=== PATIENT | male | born 1960 | race American Indian/Alaskan Native ===

== ENCOUNTER 2017-09-25 13:43 | Inpatient (IN) | payer MEDICAID ==
--- NOTE | 2017-09-25 18:00 | Emergency Department Report ---
Chief Complaint: Dental/Oral Stated Complaint: SWOLLLEN JAW Time Seen by Provider: 09/25/17 17:40 - HPI History of Present Illness: Patient here reports that he has swelling to the left jaw area that he noticed when he woke up this morning and it's getting more swollen as the day goes on. He said he feels hot and chills. Pain is 8 out of 10 to his facial area. He said it's achy and throbbing. Patient and has a history of tonsillar cancer and had completed radiation therapy and 08/21/2017. He has HIV and was diagnosed as 1983. History of complete thyroidectomy. Negative nausea or vomiting. - ROS Review of Systems: all Systems are negative unless stated in HPI above - Exam Vital Signs: Vital Signs 09/25/17 15:00 Temperature 99.9 F H Pulse Rate 96 H Respiratory 20 Rate Blood Pressure 150/86 Blood Pressure 150/86 [Right] O2 Sat by Pulse 98 Oximetry Physical Exam: Gen.: Is a 57-year-old male well-nourished well-developed nontoxic in appearance MOUTH: Moist, is that of left facial swelling. Uvula is midline. Left oral mucosa tender to palpate. Oral airway is patent. No trismus Lungs: Clear to auscultate bilaterally, no rhonchi wheezes or rales MSE screening note: Focused history and physical exam performed. Due to findings the following was ordered: ED Medical Decision Making - Medical Decision Making MDM: Patient screened by provider in triage area. Appropriate protocol initiated and patient to be seen in main ED by ED Disposition for MSE Condition: Stable Referrals: PRIMARY CARE, [Primary Care Provider] - 3-5 Days
[2017-09-25 19:07] LABS: Basophils % (Auto) 0.2 % (0.0-1.8); Eosinophils % (Auto) 0.1 % (0.0-4.3); Hematocrit 44.1 % (35.5-45.6); Hemoglobin 14.3 gm/dl (11.8-15.2); Mean Corpuscular HGB Conc 32 % (32-34); Mean Corpuscular Hemoglobin 27 pg (28-32); Mean Corpuscular Volume 84 fl (84-94); Platelet Count 228 K/mm3 (140-440); Red Blood Count 5.25 M/mm3 (3.65-5.03); Red Cell Distribution Width 15.7 % (13.2-15.2); White Blood Count 9.8 K/mm3 (4.5-11.0)
[2017-09-25 19:27] LABS: Alanine Aminotransferase 14 units/L (7-56); Albumin 4.4 g/dL (3.9-5); Albumin/Globulin Ratio 1.3 %; Alkaline Phosphatase 62 units/L (35-129); Anion Gap 17 mmol/L; BUN/Creatinine Ratio 11; Blood Urea Nitrogen 10 mg/dL (9-20); Calcium 9.1 mg/dL (8.4-10.2); Carbon Dioxide 28 mmol/L (22-30); Chloride 97.4 mmol/L (98-107); Glucose 114 mg/dL (75-100); Potassium 4.4 mmol/L (3.6-5.0); Sodium 138 mmol/L (137-145); Total Protein 7.9 g/dL (6.3-8.2)
[2017-09-25] MEDS ORDERED: SUBLIMAZE IV ONE (19:46)
[2017-09-25] MEDS ORDERED: NACL ONE (20:33)
[2017-09-25] MEDS ORDERED: NACL 0.9% 1000 ML 1,000 ML IV ONE (21:21)
[2017-09-25] MEDS ORDERED: UNASYN/NS 3 GM/100 ML 3 GM/100 ML BAG IV ONE (21:36)
--- NOTE | 2017-09-25 21:37 | Emergency Department Report ---
ED General Adult HPI - General Chief complaint: Dental/Oral Stated complaint: SWOLLLEN JAW Time Seen by Provider: 09/25/17 17:55 Source: patient Mode of arrival: Ambulatory Limitations: No Limitations - History of Present Illness Initial comments: She is a 57-year-old male past medical history of HIV who presents with left jaw swelling and pain. Patient states that he woke up this morning and he had some swelling on his left jaw. Patient states that the pain is a 7 out of 10 chewing makes it worse and nothing makes it better. Patient states that the onset of the pain was this morning. Patient states that he had no tooth pain or any rashes on his face before he noticed this this morning. Patient states that this is never happened to him before. Patient has had a thyroidectomy done before on him in the past. He denies any fevers or chills. Severity scale (0 -10): 7 - Related Data Home Medications Medication Instructions Recorded Confirmed Last Taken Docusate Sodium [Colace CAP] 100 mg PO BID PRN 09/26/17 09/26/17 Unknown Emtricita/Rilpivirine/Tenof Df 1 tab PO QDAY 09/26/17 09/26/17 Unknown [Complera Tablet] Gabapentin [Neurontin] 100 mg PO TID 09/26/17 09/26/17 Unknown Levothyroxine [Synthroid] 100 mcg PO QDAY 09/26/17 09/26/17 Unknown Lidocaine Viscous 2% [Lidocaine 5 ml PO PRN PRN 09/26/17 09/26/17 Unknown Viscous 2%] Loratadine [Loratadine] 10 mg PO QDAY PRN 09/26/17 09/26/17 Unknown Sennosides [Senna] 1 tab PO PRN 09/26/17 09/26/17 Unknown Allergies Allergy/AdvReac Type Severity Reaction Status Date / Time No Known Allergies Allergy Unverified 09/25/17 15:00 ED Review of Systems ROS: Stated complaint: SWOLLLEN JAW Other details as noted in HPI Constitutional: denies: chills, fever Eyes: denies: eye pain, eye discharge, vision change ENT: as per HPI, dental pain. denies: ear pain, throat pain Respiratory: denies: cough, shortness of breath, wheezing Cardiovascular: denies: chest pain, palpitations Endocrine: no symptoms reported Gastrointestinal: denies: abdominal pain, nausea, diarrhea Genitourinary: denies: urgency, dysuria Musculoskeletal: denies: back pain, joint swelling, arthralgia Skin: denies: rash, lesions Neurological: denies: headache, weakness, paresthesias Psychiatric: denies: anxiety, depression Hematological/Lymphatic: denies: easy bleeding, easy bruising ED Past Medical Hx - Past Medical History Hx of Cancer: Yes (tonsillar CA-radiation completed 08/18) Hx HIV: Yes (DX 1983) Additional medical history: complete thyroidectomy (left thyroid 1996, 2006 right thyroid) - Surgical History Additional Surgical History: bilateral leg sx-broken(20 yrs ago) - Social History Smoking Status: Former Smoker Substance Use Type: None, Marijuana - Medications Home Medications: Home Medications Medication Instructions Recorded Confirmed Last Taken Type Docusate Sodium [Colace CAP] 100 mg PO BID PRN 09/26/17 09/26/17 Unknown History Emtricita/Rilpivirine/Tenof Df 1 tab PO QDAY 09/26/17 09/26/17 Unknown History [Complera Tablet] Gabapentin [Neurontin] 100 mg PO TID 09/26/17 09/26/17 Unknown History Levothyroxine [Synthroid] 100 mcg PO QDAY 09/26/17 09/26/17 Unknown History Lidocaine Viscous 2% [Lidocaine 5 ml PO PRN PRN 09/26/17 09/26/17 Unknown History Viscous 2%] Loratadine [Loratadine] 10 mg PO QDAY PRN 09/26/17 09/26/17 Unknown History Sennosides [Senna] 1 tab PO PRN 09/26/17 09/26/17 Unknown History ED Physical Exam - General Limitations: No Limitations General appearance: alert, in no apparent distress - Head Head exam: Present: atraumatic, normocephalic - Eye Eye exam: Present: normal appearance - ENT ENT exam: Present: mucous membranes moist - Neck Neck exam: Present: other (left jaw and left facial swelling tender to palpation poor dentition. Tolerating secretions well) - Respiratory Respiratory exam: Present: normal lung sounds bilaterally. Absent: respiratory distress - Cardiovascular Cardiovascular Exam: Present: regular rate, normal rhythm. Absent: systolic murmur, diastolic murmur, rubs, gallop - GI/Abdominal GI/Abdominal exam: Present: soft, normal bowel sounds - Rectal Rectal exam: Present: deferred - Extremities Exam Extremities exam: Present: normal inspection - Back Exam Back exam: Present: normal inspection - Neurological Exam Neurological exam: Present: alert, oriented X3 - Psychiatric Psychiatric exam: Present: normal affect, normal mood - Skin Skin exam: Present: warm, dry, intact, normal color. Absent: rash ED Course Vital Signs 09/25/17 09/25/17 09/25/17 14:44 15:00 15:22 Temperature 99.9 F H Pulse Rate 96 H 96 H 120 H Respiratory 20 Rate Blood Pressure 150/86 150/86 171/118 Blood Pressure 150/86 [Right] O2 Sat by Pulse 99 98 98 Oximetry 09/25/17 09/25/17 09/25/17 16:43 17:41 17:55 Temperature Pulse Rate 104 H 75 Respiratory Rate Blood Pressure 125/88 158/71 137/66 Blood Pressure [Right] O2 Sat by Pulse 99 98 Oximetry 09/25/17 09/25/17 09/25/17 17:59 18:08 18:13 Temperature Pulse Rate 86 78 110 H Respiratory Rate Blood Pressure 131/84 131/81 142/73 Blood Pressure [Right] O2 Sat by Pulse 100 100 93 Oximetry 09/25/17 09/25/17 09/25/17 18:22 18:31 18:37 Temperature 100.3 F H Pulse Rate 121 H Respiratory 22 Rate Blood Pressure 152/84 Blood Pressure [Right] O2 Sat by Pulse 97 Oximetry 09/25/17 09/25/17 09/25/17 18:45 19:00 19:05 Temperature Pulse Rate 96 H 91 H 91 H Respiratory 14 13 13 Rate Blood Pressure 151/95 159/101 159/101 Blood Pressure [Right] O2 Sat by Pulse Oximetry 09/25/17 09/25/17 09/25/17 19:10 19:15 19:21 Temperature Pulse Rate 89 89 96 H Respiratory 13 13 16 Rate Blood Pressure 159/97 159/97 159/97 Blood Pressure [Right] O2 Sat by Pulse Oximetry 09/25/17 09/25/17 09/25/17 19:25 19:30 19:35 Temperature Pulse Rate 89 92 H 89 Respiratory 14 15 13 Rate Blood Pressure 159/97 157/92 157/92 Blood Pressure [Right] O2 Sat by Pulse Oximetry 09/25/17 09/25/17 09/25/17 19:40 19:45 19:50 Temperature Pulse Rate 92 H 92 H 101 H Respiratory 17 16 13 Rate Blood Pressure 150/99 150/99 147/97 Blood Pressure [Right] O2 Sat by Pulse Oximetry 09/25/17 09/25/17 09/25/17 19:55 20:00 20:05 Temperature Pulse Rate 91 H 89 96 H Respiratory 14 13 13 Rate Blood Pressure 147/97 152/95 152/95 Blood Pressure [Right] O2 Sat by Pulse Oximetry 09/25/17 09/25/17 09/25/17 20:10 20:15 20:21 Temperature Pulse Rate 93 H 108 H 97 H Respiratory 16 11 L 11 L Rate Blood Pressure 148/95 148/95 131/80 Blood Pressure [Right] O2 Sat by Pulse Oximetry 09/25/17 09/25/17 09/25/17 20:25 20:30 20:35 Temperature Pulse Rate 103 H 110 H 97 H Respiratory 13 18 13 Rate Blood Pressure 131/80 140/84 140/84 Blood Pressure [Right] O2 Sat by Pulse Oximetry 09/25/17 09/25/17 09/25/17 20:40 20:45 20:50 Temperature Pulse Rate 100 H 103 H 111 H Respiratory 13 11 L 11 L Rate Blood Pressure 130/78 130/78 140/84 Blood Pressure [Right] O2 Sat by Pulse Oximetry 09/25/17 09/25/17 09/25/17 21:37 21:40 21:45 Temperature Pulse Rate 92 H 90 Respiratory 12 12 Rate Blood Pressure 140/84 154/92 154/92 Blood Pressure [Right] O2 Sat by Pulse 98 100 100 Oximetry 09/25/17 09/25/17 09/25/17 21:50 21:55 22:00 Temperature Pulse Rate 90 90 92 H Respiratory 17 15 13 Rate Blood Pressure 162/91 162/91 153/84 Blood Pressure [Right] O2 Sat by Pulse 100 100 100 Oximetry 09/25/17 09/26/17 09/26/17 22:05 00:02 00:03 Temperature 100.8 F H Pulse Rate 86 Respiratory 12 Rate Blood Pressure 153/84 153/84 Blood Pressure [Right] O2 Sat by Pulse 100 100 Oximetry 09/26/17 00:10 Temperature Pulse Rate Respiratory Rate Blood Pressure 149/91 Blood Pressure [Right] O2 Sat by Pulse 100 Oximetry ED Medical Decision Making - Lab Data Result diagrams: 09/26/17 05:55 09/26/17 05:55 Lab Results 09/25/17 09/25/17 09/25/17 Range/Units 18:51 18:51 18:51 WBC 9.8 (4.5-11.0) K/mm3 RBC 5.25 H (3.65-5.03) M/mm3 Hgb 14.3 (11.8-15.2) gm/dl Hct 44.1 (35.5-45.6) % MCV 84 (84-94) fl MCH 27 L (28-32) pg MCHC 32 (32-34) % RDW 15.7 H (13.2-15.2) % Plt Count 228 (140-440) K/mm3 Lymph % (Auto) 10.2 L (13.4-35.0) % [place] % (Auto) 7.6 H (0.0-7.3) % Eos % (Auto) 0.1 (0.0-4.3) % Baso % (Auto) 0.2 (0.0-1.8) % Lymph # 1.0 L (1.2-5.4) K/mm3 [place] # 0.7 (0.0-0.8) K/mm3 Eos # 0.0 (0.0-0.4) K/mm3 Baso # 0.0 (0.0-0.1) K/mm3 Seg Neutrophils % 81.9 H (40.0-70.0) % Seg Neutrophils # 8.0 H (1.8-7.7) K/mm3 Carbon Dioxide 28 (22-30) mmol/L BUN 10 (9-20) mg/dL Creatinine 0.9 (0.8-1.5) mg/dL Estimated GFR > 60 ml/min BUN/Creatinine Ratio 11 % Glucose 114 H (75-100) mg/dL Lactic Acid 2.10 H* (0.7-2.0) mmol/L Calcium 9.1 (8.4-10.2) mg/dL Total Bilirubin 1.20 (0.1-1.2) mg/dL AST 28 (5-40) units/L ALT 14 (7-56) units/L Alkaline Phosphatase 62 (35-129) units/L Total Protein 7.9 (6.3-8.2) g/dL Albumin 4.4 (3.9-5) g/dL Albumin/Globulin Ratio 1.3 % - Radiology Data Radiology results: report reviewed, image reviewed CT angiogram head and neck shows left facial subcutaneous edema is compatible with cellulitis. No organized abscess or focal soft tissue masses seen. - Medical Decision Making Chief medical diagnosis: Left facial cellulitis Differential medical diagnosis: Left facial abscess, parotitis, Chuy's angina I will get CT angiogram head and neck, CBC, CMP, IV antibiotics, fluid bolus, lactic acid, IV pain medication, blood cultures CT and her head and neck shows left facial cellulitis patient will need IV antibiotics and blood cultures. It is unlikely that patient has sepsis as his vital signs are stable he does not need to be transferred for ENT evaluation as there is no abscess and no surgical treatment that needs to be done on this patient. Discussed plan with patient and patient agrees to plan patient will be admitted to the hospitalist service. Critical care attestation.: If time is entered above; I have spent that time in minutes in the direct care of this critically ill patient, excluding procedure time. ED Disposition Clinical Impression: Left facial pain, Facial cellulitis, Elevated lactic acid level Disposition: OP ADMIT IP TO THIS HOSP Is pt being admited?: Yes Does the pt Need Aspirin: No Condition: Stable
--- NOTE | 2017-09-25 22:02 | Cat Scan Report ---
FINAL REPORT PROCEDURE: CT ANGIO NECK TECHNIQUE: Computerized axial tomography of the soft tissue neck was performed following the IV injection of iodinated nonionic contrast. MIP reconstructed images were obtained. HISTORY: left facial mass COMPARISON: No prior studies are available for comparison. FINDINGS: Skull and scalp: Normal. Paranasal sinuses: Normal. Nasopharynx: Normal . Oral cavity: Normal . Epiglottis/vallecula: Mild thickening of the epiglottis. Larynx/pyriform sinuses: Normal . Thyroid gland: There are clips in the expected location of the thyroid, compatible with prior thyroidectomy. There is enhancing soft tissue in the anterior neck, anterior to the trachea, measuring 1.0 centimeters AP x 1.5 centimeters transverse x 2.5 centimeters craniocaudal, possibly related to thyroid tissue. Lymph nodes: None enlarged . Salivary glands: Normal . Upper thorax: Normal . There is extensive left facial subcutaneous edema. No organized fluid collections/abscess is seen. No focal soft tissue mass is identified. Bilateral vertebral arteries, common carotid arteries, internal carotid arteries are patent, without focal stenosis IMPRESSION: Left facial subcutaneous edema is compatible with cellulitis. No organized abscess or focal soft tissue mass is seen. If there are persistent symptoms, a follow-up CT could be obtained to exclude developing abscess Enhancing soft tissue density in the anterior neck, anterior to the trachea, may be related to remnant thyroid tissue. There is mild thickening of the epiglottis which can be seen with early inflammation.
--- NOTE | 2017-09-25 23:18 | History and Physical Report ---
History of Present Illness Date of examination: 09/25/17 History of present illness: 57-year-old man with a history of HIV, CD4 count of 526, tonsillar cancer, hypothyroidism comes emergency room because he was awoken up to see that is the left side of his face was swollen. He denies any fever or chills Review Of Systems: Constitutional: no weight loss Ears, eyes, nose, mouth and throat: no nasal congestion, no nasal discharge, no sinus pressure, blurry vision, diplopia Neck: No neck pain or rigidity. Cardiovascular: chest pain, orthopnea, palpitations Respiratory: No shortness of breath, cough Gastrointestinal: abdominal pain, hematochezia Genitourinary : no dysuria, frequency , hematuria Musculoskeletal: no muscle ache Integumentary: no rash, no pruritis Neurological: no parathesias, focal weakness Endocrine: no cold or heat intolerance, no polyuria or polydipsia Hematologic/Lymphatic: no easy bruising, no easy bleeding, no gland swelling Allergic/Immunologic: no urticaria, no angioedema. Medications and Allergies Allergies Allergy/AdvReac Type Severity Reaction Status Date / Time No Known Allergies Allergy Unverified 09/25/17 15:00 Exam - Physical Exam Narrative exam: Gen. appearance: Patient lying in bed in no acute distress HEENT: Normocephalic/atraumatic, pupils equal round reactive to light, extra alkaline movement intact, no scleral icterus, no JVD or thyromegaly or nodule, neck is supple, mucous membrane moist, no erythema or exudate Heart: S1-S2, regular rate and rhythm Lungs: Clear to auscultation bilateral breathing comfortable Abdomen: Positive bowel sounds, nontender, nondistended, no organomegaly Extremities: Left lower face is swollen, tender to touch , no erythema, No edema , cyanosis, clubbing Neuro:: Oriented 3 , cranial nerves II-12 intact, speech, motor intact Skin: No rash, nodules, warm dry - Constitutional Vitals: Temp Pulse Resp BP Pulse Ox 100.3 F H 91 H 13 159/101 97 09/25/17 18:37 09/25/17 19:00 09/25/17 19:00 09/25/17 19:00 09/25/17 18:22 Results - Labs CBC & Chem 7: 09/25/17 18:51 09/25/17 18:51 Labs: Abnormal lab results 09/25/17 09/25/17 09/25/17 Range/Units 18:51 18:51 18:51 RBC 5.25 H (3.65-5.03) M/mm3 MCH 27 L (28-32) pg RDW 15.7 H (13.2-15.2) % Lymph % (Auto) 10.2 L (13.4-35.0) % [place] % (Auto) 7.6 H (0.0-7.3) % Lymph # 1.0 L (1.2-5.4) K/mm3 Seg Neutrophils % 81.9 H (40.0-70.0) % Seg Neutrophils # 8.0 H (1.8-7.7) K/mm3 Glucose 114 H (75-100) mg/dL Lactic Acid 2.10 H* (0.7-2.0) mmol/L Assessment and Plan CT left lower face reviewed Assessment Cellulitis of the face HIV History of tonsillar cancer Hypothyroidism Plan Admit to medicine Start Zosyn, given a dose of IV vancomycin Follow cultures Continue Procrit outpatient medication DVT prophylaxis
[2017-09-25] MEDS ORDERED: TYLENOL PO PRN (23:44)
[2017-09-25] MEDS ORDERED: PROVENTIL IH PRN (23:44)
[2017-09-25] MEDS ORDERED: ZOFRAN IV PRN (23:44)
[2017-09-25] MEDS ORDERED: MORPHINE IV PRN (23:44)
[2017-09-26] MEDS ORDERED: VANCOMYCIN/NS 1 GM/250 ML 1 GM/250 ML BAG IV ONE
[2017-09-26] MEDS ORDERED: TYLENOL ONE (00:17)
[2017-09-26 06:08] LABS: Basophils % (Auto) 0.4 % (0.0-1.8); Eosinophils % (Auto) 0.6 % (0.0-4.3); Hematocrit 37.2 % (35.5-45.6); Hemoglobin 12.8 gm/dl (11.8-15.2); Mean Corpuscular HGB Conc 34 % (32-34); Mean Corpuscular Hemoglobin 28 pg (28-32); Mean Corpuscular Volume 82 fl (84-94); Platelet Count 181 K/mm3 (140-440); Red Blood Count 4.54 M/mm3 (3.65-5.03); Red Cell Distribution Width 15.4 % (13.2-15.2); White Blood Count 8.5 K/mm3 (4.5-11.0)
[2017-09-26 06:32] LABS: Anion Gap 16 mmol/L; BUN/Creatinine Ratio 12; Blood Urea Nitrogen 11 mg/dL (9-20); Calcium 8.9 mg/dL (8.4-10.2); Carbon Dioxide 27 mmol/L (22-30); Glucose 96 mg/dL (75-100); Potassium 4.4 mmol/L (3.6-5.0); Sodium 139 mmol/L (137-145)
[2017-09-26] MEDS: ZOSYN/NS 4.5GM/100ML 4.5 GM/100 ML VIAL IV SCH ×3 (07:30→22:00)
[2017-09-26] MEDS: LOVENOX SUB-Q SCH (10:26)
--- NOTE | 2017-09-26 10:56 | Progress Note ---
Assessment and Plan Assessment and plan: 57-year-old man with a history of HIV, CD4 count of 526, tonsillar cancer, hypothyroidism who pw Left facial pain and swelling. Patient relates that he has tonsillar cancer, he just received radiation therapy to his neck. CT neck, image reviewed Left facial subcutaneous edema cw cellulitis, no abscess or fluid collection Sepsis/ Left facial cellulitis -Continue abx -ID consult -Imaging shows no evidence of abscess HIV -obtain CD4 count and viral load -ID consult -Obtain med list and restart his HAART History Interval history: He reports that he continues to have swelling and pain in the left side of his face. He is also having some trouble swallowing. But denies any drooling Hospitalist Physical - Physical exam Narrative exam: General.: Appears well, no distress, nontoxic HEENT: Moist mucous membranes, extraocular muscles intact, Severe swelling of his left face with tenderness Neck: supple Cardiac: S1-S2 heard Lungs: clear to auscultation bilaterally Abdomen: soft , nontender, nondistended, bowel sounds positive Extremities: no edema clubbing or cyanosis Skin: no rash or lesions Neurologic: no gross focal deficits Psych: appropriate behavior, appropriate mood, corporative, judgment intact - Constitutional Vitals: Temp Pulse Resp BP Pulse Ox 99.7 F H 92 H 18 125/80 97 09/26/17 08:15 09/26/17 08:15 09/26/17 08:15 09/26/17 08:15 09/26/17 08:22 Results - Labs CBC & Chem 7: 09/26/17 05:55 09/26/17 05:55 Labs: Laboratory Last Values WBC 8.5 K/mm3 (4.5-11.0) 09/26/17 05:55 RBC 4.54 M/mm3 (3.65-5.03) 09/26/17 05:55 Hgb 12.8 gm/dl (11.8-15.2) 09/26/17 05:55 Hct 37.2 % (35.5-45.6) D 09/26/17 05:55 MCV 82 fl (84-94) L 09/26/17 05:55 MCH 28 pg (28-32) 09/26/17 05:55 MCHC 34 % (32-34) 09/26/17 05:55 RDW 15.4 % (13.2-15.2) H 09/26/17 05:55 Plt Count 181 K/mm3 (140-440) 09/26/17 05:55 Lymph % (Auto) 12.1 % (13.4-35.0) L 09/26/17 05:55 [place] % (Auto) 9.7 % (0.0-7.3) H 09/26/17 05:55 Eos % (Auto) 0.6 % (0.0-4.3) 09/26/17 05:55 Baso % (Auto) 0.4 % (0.0-1.8) 09/26/17 05:55 Lymph # 1.0 K/mm3 (1.2-5.4) L 09/26/17 05:55 [place] # 0.8 K/mm3 (0.0-0.8) 09/26/17 05:55 Eos # 0.0 K/mm3 (0.0-0.4) 09/26/17 05:55 Baso # 0.0 K/mm3 (0.0-0.1) 09/26/17 05:55 Seg Neutrophils % 77.2 % (40.0-70.0) H 09/26/17 05:55 Seg Neutrophils # 6.6 K/mm3 (1.8-7.7) 09/26/17 05:55 Sodium 139 mmol/L (137-145) 09/26/17 05:55 Potassium 4.4 mmol/L (3.6-5.0) 09/26/17 05:55 Chloride 100.0 mmol/L (98-107) 09/26/17 05:55 Carbon Dioxide 27 mmol/L (22-30) 09/26/17 05:55 Anion Gap 16 mmol/L 09/26/17 05:55 BUN 11 mg/dL (9-20) 09/26/17 05:55 Creatinine 0.9 mg/dL (0.8-1.5) 09/26/17 05:55 Estimated GFR > 60 ml/min 09/26/17 05:55 BUN/Creatinine Ratio 12 % 09/26/17 05:55 Glucose 96 mg/dL (75-100) 09/26/17 05:55 Lactic Acid 2.10 mmol/L (0.7-2.0) H* 09/25/17 18:51 Calcium 8.9 mg/dL (8.4-10.2) 09/26/17 05:55 Total Bilirubin 1.20 mg/dL (0.1-1.2) 09/25/17 18:51 AST 28 units/L (5-40) 09/25/17 18:51 ALT 14 units/L (7-56) 09/25/17 18:51 Alkaline Phosphatase 62 units/L (35-129) 09/25/17 18:51 Total Protein 7.9 g/dL (6.3-8.2) 09/25/17 18:51 Albumin 4.4 g/dL (3.9-5) 09/25/17 18:51 Albumin/Globulin Ratio 1.3 % 09/25/17 18:51
[2017-09-26] MEDS ORDERED: Fluarix Quad 2017-2018(36 MOS+) IM ONE (12:00)
--- NOTE | 2017-09-26 13:42 | Consultation ---
History of Present Illness - Reason for Consult Consult date: 09/26/17 left neck swelling - History of Present Illness 57 years old male, with history of HIV infection sees Dr Ngo in [facility], last [id number]=[id number], VL<20, tonsillar cancer diagnosed in Dec 2016 status post drug-radiotherapy, last cycle 2 months ago, hypothyroidism; admitted on 09/25/2017 due to 12 hours history of left neck and face swelling and tenderness. Patient reports that he will went to bed normally yesterday woke up this morning with severe swelling of the left neck. Reports minimal pain. Denies any trismus, odynophagia, toothache, recent tooth infection, ear infection. In the emergency room, initial temperature was 99.9, went to 100.3, heart rate 96, blood pressure 150/86. Initial white count 9.8. Creatinine 0.9. Lactic acid 2.1. CTA of the neck showed a left facial subcutaneous edema. Current Antimicrobials: Zosyn Microbiology: Blood cultures: 09/25 ngtd Past History Past Medical History: other (HIV) Past Surgical History: Other (thyrodectomy ) Medications and Allergies Allergies Allergy/AdvReac Type Severity Reaction Status Date / Time No Known Allergies Allergy Unverified 09/25/17 15:00 Active Meds: Active Medications Acetaminophen (Tylenol) 650 mg PO Q4H PRN PRN Reason: Pain MILD(1-3)/Fever >100.5/ARCHULETA Last Admin: 09/26/17 00:30 Dose: 650 mg Albuterol (Proventil) 2.5 mg IH Q3HRT PRN PRN Reason: Shortness Of Breath Enoxaparin Sodium (Lovenox) 40 mg SUB-Q QDAY [facility] Last Admin: 09/26/17 10:26 Dose: 40 mg Piperacillin Sod/Tazobactam Sod (Zosyn/Ns 4.5gm/100ml) 4.5 gm in 100 mls @ 200 mls/hr IV Q8HR MAC PRN Reason: Protocol Last Admin: 09/26/17 07:30 Dose: 200 mls/hr Morphine Sulfate (Morphine) 2 mg IV Q4H PRN PRN Reason: Pain, Moderate (4-6) Ondansetron HCl (Zofran) 4 mg IV Q8H PRN PRN Reason: N/V unrelieved by Reglan Review of Systems All systems: negative (as per HPI) Physical Examination - Physical Exam Narrative exam: General appearance: Alert in NAD, conversant Eyes: anicteric sclerae, moist conjunctivae; no lid-lag; PERRLA HENT: Atraumatic; oropharynx clear with moist mucous membranes and no mucosal ulcerations/no oral thrush; normal hard and soft palate. Normal external ears. Neck: marked left neck swelling and mild tenderness no heat no erythema Lungs: CTA, with normal respiratory effort and no intercostal retractions CV: RRR Abdomen: Soft, non-tender; no masses or hepatosplenomegaly Extremities: No peripheral edema or extremity lymphadenopathy Skin: Normal temperature, turgor and texture; no rash, ulcers or subcutaneous nodules Psych: Appropriate affect, alert and oriented to person, place and time. Neuro: alert and oriented x 3. Moving all extermities Lines: No CVL / PICC - Constitutional Vitals: Vital Signs Temp Pulse Resp BP Pulse Ox 99.1 F 94 H 18 124/84 100 09/26/17 12:50 09/26/17 12:50 09/26/17 12:50 09/26/17 12:50 09/26/17 12:50 Temperature -Last 24 Hours Temperature 99.1 F Temperature 99.7 F Temperature 99.8 F Temperature 100.8 F Results - Labs CBC & Chem 7: 09/26/17 05:55 09/26/17 05:55 Labs: Abnormal lab results 09/26/17 Range/Units 05:55 MCV 82 L (84-94) fl RDW 15.4 H (13.2-15.2) % Lymph % (Auto) 12.1 L (13.4-35.0) % [place] % (Auto) 9.7 H (0.0-7.3) % Lymph # 1.0 L (1.2-5.4) K/mm3 Seg Neutrophils % 77.2 H (40.0-70.0) % Assessment and Plan Assessment: 1) Sepsis: Present on admission, manifested by fever, tachycardia, increased lactate. Etiology most likely left submandibular space infection (jose's angina) from the floor of the mouth of most likely odontogenic origin. 2) HIV infection: sees Dr Ngo in [facility], last DI6=009, VL< 20 in July 2017. Under excellent control. 3) Tonsillar cancer diagnosed in Dec 2016 status post drug-radiotherapy, last cycle 2 months ago 4) Hypothyroidism Plan: -follow-up blood cultures -obtain C-reactive protein (CRP) -continue zosyn -monitor airway patency -if not better in 48 hours obtain neck soft tissue MRI and consult ENT -if remarkably improvement then change to PO augmentin total 14 days -continue complera I will be off from September 27 until September 30, I will be back on October 01. I will be available over the phone. Thank you Dr Trevino for your consultation, will follow up with you. Namrata Palacios MD Infectious Diseases Specialist [facility] M [phone] O [phone]
[2017-09-27] MEDS: ZOSYN/NS 4.5GM/100ML 4.5 GM/100 ML VIAL IV SCH ×3 (06:40→22:31)
[2017-09-27] MEDS: LOVENOX SUB-Q SCH (11:17)
--- NOTE | 2017-09-27 14:37 | Progress Note ---
Assessment and Plan Assessment and plan: 57-year-old man with a history of HIV, CD4 count of 526, tonsillar cancer, hypothyroidism who pw Left facial pain and swelling. Patient relates that he has tonsillar cancer, he just received radiation therapy to his neck. Tonsillar cancer Patient has recently finished his radiation therapy CT neck, image reviewed Left facial subcutaneous edema cw cellulitis, no abscess or fluid collection Sepsis/ Left facial cellulitis -Continue abx -ID consult appreciated -Imaging shows no evidence of abscess, repeat CT of his face prior to discharge tomorrow HIV -obtain CD4 count and viral load Continue HAART History Interval history: He relates that the swellingis much improved, pain is improved. She is no longer having any pain or discomfort with swallowing. Hoarseness has improved. Hospitalist Physical - Physical exam Narrative exam: General.: Appears well, no distress, nontoxic HEENT: Moist mucous membranes, extraocular muscles intact, Interval reduction in swelling and tenderness of his left face Neck: supple Cardiac: S1-S2 heard Lungs: clear to auscultation bilaterally Abdomen: soft , nontender, nondistended, bowel sounds positive Extremities: no edema clubbing or cyanosis Skin: no rash or lesions Neurologic: no gross focal deficits Psych: appropriate behavior, appropriate mood, corporative, judgment intact - Constitutional Vitals: Temp Pulse Resp BP Pulse Ox 98.4 F 69 18 105/70 100 09/27/17 07:52 09/27/17 07:52 09/27/17 07:52 09/27/17 07:52 09/27/17 10:00 Results - Labs CBC & Chem 7: 09/26/17 05:55 09/26/17 05:55 Labs: Laboratory Last Values WBC 8.5 K/mm3 (4.5-11.0) 09/26/17 05:55 RBC 4.54 M/mm3 (3.65-5.03) 09/26/17 05:55 Hgb 12.8 gm/dl (11.8-15.2) 09/26/17 05:55 Hct 37.2 % (35.5-45.6) D 09/26/17 05:55 MCV 82 fl (84-94) L 09/26/17 05:55 MCH 28 pg (28-32) 09/26/17 05:55 MCHC 34 % (32-34) 09/26/17 05:55 RDW 15.4 % (13.2-15.2) H 09/26/17 05:55 Plt Count 181 K/mm3 (140-440) 09/26/17 05:55 Lymph % (Auto) 12.1 % (13.4-35.0) L 09/26/17 05:55 [place] % (Auto) 9.7 % (0.0-7.3) H 09/26/17 05:55 Eos % (Auto) 0.6 % (0.0-4.3) 09/26/17 05:55 Baso % (Auto) 0.4 % (0.0-1.8) 09/26/17 05:55 Lymph # 1.0 K/mm3 (1.2-5.4) L 09/26/17 05:55 [place] # 0.8 K/mm3 (0.0-0.8) 09/26/17 05:55 Eos # 0.0 K/mm3 (0.0-0.4) 09/26/17 05:55 Baso # 0.0 K/mm3 (0.0-0.1) 09/26/17 05:55 Seg Neutrophils % 77.2 % (40.0-70.0) H 09/26/17 05:55 Seg Neutrophils # 6.6 K/mm3 (1.8-7.7) 09/26/17 05:55 Sodium 139 mmol/L (137-145) 09/26/17 05:55 Potassium 4.4 mmol/L (3.6-5.0) 09/26/17 05:55 Chloride 100.0 mmol/L (98-107) 09/26/17 05:55 Carbon Dioxide 27 mmol/L (22-30) 09/26/17 05:55 Anion Gap 16 mmol/L 09/26/17 05:55 BUN 11 mg/dL (9-20) 09/26/17 05:55 Creatinine 0.9 mg/dL (0.8-1.5) 09/26/17 05:55 Estimated GFR > 60 ml/min 09/26/17 05:55 BUN/Creatinine Ratio 12 % 09/26/17 05:55 Glucose 96 mg/dL (75-100) 09/26/17 05:55 Lactic Acid 2.10 mmol/L (0.7-2.0) H* 09/25/17 18:51 Calcium 8.9 mg/dL (8.4-10.2) 09/26/17 05:55 Total Bilirubin 1.20 mg/dL (0.1-1.2) 09/25/17 18:51 AST 28 units/L (5-40) 09/25/17 18:51 ALT 14 units/L (7-56) 09/25/17 18:51 Alkaline Phosphatase 62 units/L (35-129) 09/25/17 18:51 C-Reactive Protein 8.40 mg/dL (0.00-1.30) H 09/26/17 05:55 Total Protein 7.9 g/dL (6.3-8.2) 09/25/17 18:51 Albumin 4.4 g/dL (3.9-5) 09/25/17 18:51 Albumin/Globulin Ratio 1.3 % 09/25/17 18:51
[2017-09-28] MEDS: ZOSYN/NS 4.5GM/100ML 4.5 GM/100 ML VIAL IV SCH ×2 (06:25→14:03)
--- NOTE | 2017-09-28 08:06 | Cat Scan Report ---
FINAL REPORT EXAM: CT FACIAL BONES WO CON HISTORY: Left facial pain and swelling, TECHNIQUE: Routine axial imaging was obtained of the facial bones without IV contrast with sagittal and coronal reconstructions. FINDINGS: There is non specific reticulation of the subcutaneous fat along the left side of the face compatible with nonspecific cellulitis. There is no evidence of abscess formation or osteomyelitis. The sinuses are all clear. The orbital structures appear normal. The orbital rims and floors appear normal. The nasal bones, zygomatic arches and mandible appear intact. The mastoid air cells are well pneumatized. IMPRESSION: Nonspecific cellulitis overlying the left side of the face. No evidence of abscess formation or osteomyelitis. No evidence of sinusitis or mastoiditis.
[2017-09-28 08:52] VITALS: BP 113/67
[2017-09-28] MEDS: COMPLERA PO SCH ×3 (09:52→10:59)
[2017-09-28] MEDS: LOVENOX SUB-Q SCH (09:53)
--- NOTE | 2017-09-28 13:26 | Discharge Summary ---
Providers - Providers Date of Admission: 09/25/17 23:17 Attending physician: VINAY NEGRO MD 09/26/17 10:27 Consult to Physician [CONS] Routine Consulting Provider: MIGUEL DAVE Reason For Exam: facial cellulitis Place consult to:: DR. RABAGO Notified:: DR. RABAGO Phone number called:: IN HOUSE Was contact made?: Yes If yes, spoke with:: DR. RABAGO Time called:: 11:10 Comment:: ABDIRAHMANASE NOTIFIED Primary care physician: [employer] Hospitalization Condition: Stable Hospital course: 57-year-old man with a history of HIV, CD4 count of 526, tonsillar cancer, hypothyroidism who pw Left facial pain and swelling. Patient relates that he has tonsillar cancer, he just received radiation therapy to his neck. He was found to have sepsis and left facial cellulitis. He had CT scan that confirmed soft tissue infection. He received IV antibiotics and clinically improved. He also had a repeat CT to ensure that he does not have a developing abscess, which confirmed interval improvement of cellulitis with no abscess. The patient is being discharged on a course of oral antibiotics, and he will follow up with his PCP on Saturday. Discharge diagnoses Sepsis/ Left facial cellulitis Tonsillar cancer CT neck, image reviewed HIV Disposition: TO HOME OR SELFCARE Time spent for discharge: 33 minutes Core Measure Documentation - Palliative Care Palliative Care/ Comfort Measures: Not Applicable - Core Measures Any of the following diagnoses?: none Exam - Constitutional Vitals: Temp Pulse Resp BP Pulse Ox 98.6 F 84 18 113/67 99 09/28/17 08:50 09/28/17 08:50 09/28/17 10:00 09/28/17 08:50 09/28/17 10:00 General appearance: Present: no acute distress, well-nourished, other (Left facial swelling, induration and tenderness, interval improvement) - EENT Eyes: Present: PERRL ENT: hearing intact, clear oral mucosa - Neck Neck: Present: supple, normal ROM - Respiratory Respiratory effort: normal Respiratory: bilateral: CTA - Cardiovascular Heart Sounds: Present: S1 & S2. Absent: rub, click - Extremities Extremities: pulses symmetrical, No edema Peripheral Pulses: within normal limits - Abdominal General gastrointestinal: Present: soft, non-tender, non-distended, normal bowel sounds Male genitourinary: Present: normal - Integumentary Integumentary: Present: clear, warm, dry - Musculoskeletal Musculoskeletal: gait normal, strength equal bilaterally - Psychiatric Psychiatric: appropriate mood/affect, intact judgment & insight - Neurologic Neurologic: CNII-XII intact, moves all extremities Plan Follow up with: PRIMARY CARE, [Primary Care Provider] - 3-5 Days [facility] [Outside] - 7 Days Prescriptions: Amoxicillin/Potassium Clav [Augmentin 875-125 Tablet] 1 each PO Q12H #20 tablet
[2017-09-29 07:49] LABS: HIV-1 RNA QN PCR 3.69 Log cps/mL (<1.30)
== END 2017-09-28 18:02 | disposition home or self-care (01) | DRG 975 ==
LOC: ED 13:43 → 3A 23:17
PROVIDERS: ADMIT Internal Medicine; ATTEND Internal Medicine
PROC: 3E0234Z Introduction of Serum, Toxoid and Vaccine into Muscle, Percutaneous Approach (ICD-10-PCS; principal; 2017-09-27)
DX: B20 Human immunodeficiency virus [HIV] disease (principal); A41.9 Sepsis, unspecified organism; L03.211 Cellulitis of face; E03.9 Hypothyroidism, unspecified; Z23 Encounter for immunization; Z87.891 Personal history of nicotine dependence; C09.9 Malignant neoplasm of tonsil, unspecified
CPT/HCPCS: 36415; 70486; 70498; 80048; 80053; 82024; 82140; 85025; 86140; 87040; 87536; 90686; 96365; 96375; 99285; J0295; J1650; J2543; J3010; J3370; J7030; Q9967

== ENCOUNTER 2022-02-09 16:39 | Emergency (ER) | payer MEDICAID ==
--- NOTE | 2022-02-09 18:02 | Emergency Department Report ---
ED Psych HPI - General Chief Complaint: Psych Stated Complaint: SI Time Seen by Provider: 02/09/22 17:10 Source: patient Mode of arrival: Ambulatory - History of Present Illness Initial Comments: pt reports SI, no plan, crying in triage , pt is HIV positive m homeless, thinks about killing himself , on drugs, he said he is tired of drugs and being homless Complaint: feels depressed -: month(s) Associated Psychiatric Symptoms: suicidal ideation History of same: Yes Quality: constant Context: recent drug abuse, significant life stressor, other (homelessness ) - Related Data Home Medications Medication Instructions Recorded Confirmed Last Taken Bictegrav/Emtricit/Tenofov [place] 1 tab PO DAILY 02/09/22 02/10/22 Unknown [Biktarvy 50-200-25 mg (Nf)] Levothyroxine [Synthroid] 100 mcg PO QAM 02/09/22 02/10/22 Unknown Tamsulosin [Flomax] 0.4 mg PO QHS 02/09/22 02/10/22 Unknown Allergies Allergy/AdvReac Type Severity Reaction Status Date / Time No Known Allergies Allergy Verified 02/09/22 16:46 ED Review of Systems ROS: Stated complaint: SI Other details as noted in HPI Constitutional: denies: chills, fever Eyes: denies: eye pain, eye discharge, vision change ENT: denies: ear pain, throat pain Respiratory: denies: cough, shortness of breath, wheezing Cardiovascular: denies: chest pain, palpitations Endocrine: no symptoms reported Gastrointestinal: denies: abdominal pain, nausea, diarrhea Genitourinary: denies: urgency, dysuria Musculoskeletal: denies: back pain, joint swelling, arthralgia Skin: denies: rash, lesions Neurological: denies: headache, weakness, paresthesias Psychiatric: denies: anxiety, depression Hematological/Lymphatic: denies: easy bleeding, easy bruising ED Past Medical Hx - Past Medical History Previous Medical History?: Yes Hx Congestive Heart Failure: No Hx Diabetes: No Hx Asthma: No Hx COPD: Yes Hx HIV: Yes (DX 1983) Additional medical history: complete thyroidectomy (left thyroid 1996, 2006 right thyroid) - Surgical History Past Surgical History?: Yes Additional Surgical History: bilateral leg sx-broken(20 yrs ago), Thyroidectomy - Social History Smoking Status: Current Every Day Smoker Substance Use Type: Cocaine - Medications Home Medications: Home Medications Medication Instructions Recorded Confirmed Last Taken Type Bictegrav/Emtricit/Tenofov [place] 1 tab PO DAILY 02/09/22 02/10/22 Unknown History [Biktarvy 50-200-25 mg (Nf)] Levothyroxine [Synthroid] 100 mcg PO QAM 02/09/22 02/10/22 Unknown History Tamsulosin [Flomax] 0.4 mg PO QHS 02/09/22 02/10/22 Unknown History ED Physical Exam - General Limitations: No Limitations General appearance: alert, anxious - Head Head exam: Present: atraumatic, normocephalic - Eye Eye exam: Present: normal appearance - ENT ENT exam: Present: mucous membranes moist - Neck Neck exam: Present: normal inspection - Respiratory Respiratory exam: Present: normal lung sounds bilaterally. Absent: respiratory distress - Cardiovascular Cardiovascular Exam: Present: regular rate, normal rhythm. Absent: systolic murmur, diastolic murmur, rubs, gallop - GI/Abdominal GI/Abdominal exam: Present: soft, normal bowel sounds - Rectal Rectal exam: Present: deferred - Extremities Exam Extremities exam: Present: normal inspection - Back Exam Back exam: Present: normal inspection - Neurological Exam Neurological exam: Present: alert, oriented X3 - Psychiatric Psychiatric exam: Present: normal affect, depressed, agitated, anxious - Skin Skin exam: Present: warm, dry, intact, normal color. Absent: rash ED Course Vital Signs 02/09/22 02/09/22 02/09/22 16:42 17:21 20:14 Temperature 98.3 F 98.5 F Pulse Rate 91 H 71 Respiratory 16 16 Rate Blood Pressure 130/78 Blood Pressure 112/66 [Right] O2 Sat by Pulse 96 97 96 Oximetry 02/10/22 02/10/22 06:00 10:06 Temperature 98 F 98.4 F Pulse Rate 72 65 Respiratory 18 18 Rate Blood Pressure Blood Pressure 117/63 119/62 [Right] O2 Sat by Pulse 100 97 Oximetry ED Medical Decision Making - Lab Data Result diagrams: 02/09/22 17:35 02/09/22 17:35 Critical care attestation.: If time is entered above; I have spent that time in minutes in the direct care of this critically ill patient, excluding procedure time. ED Disposition Clinical Impression: Suicidal ideation Disposition: [address] [place] [address] Is pt being admited?: No Does the pt Need Aspirin: No Condition: Stable Additional Instructions: Your discharge from the ED to be admitted to general psych. Referrals: EDNA MENDEZ MD [Primary Care Provider] - 3-5 Days
[2022-02-09 18:11] LABS: Basophils % (Auto) 0.1 % (0.0-1.8); Eosinophils # (Auto) 0.1 K/mm3 (0.0-0.4); Eosinophils % (Auto) 0.8 % (0.0-4.3); Hematocrit 36.2 % (35.5-45.6); Lymphocytes # (Auto) 1.4 K/mm3 (1.2-5.4); Lymphocytes % (Auto) 22.8 % (13.4-35.0); Mean Corpuscular HGB Conc 33 % (32-34); Mean Corpuscular Volume 85 fl (84-94); Monocytes # (Auto) 0.5 K/mm3 (0.0-0.8); Monocytes % (Auto) 8.1 % (0.0-7.3); Platelet Count 227 K/mm3 (140-440); Red Blood Count 4.27 M/mm3 (3.65-5.03); Red Cell Distribution Width 16.5 % (13.2-15.2)
[2022-02-09 18:15] LABS: BUN/Creatinine Ratio 12; Blood Urea Nitrogen 14 mg/dL (9-20); Calcium 8.7 mg/dL (8.4-10.2); Hemolysis Index 37
[2022-02-10 03:07] LABS: Amphetamine Screen,Urine Negative; Benzodiazepines Screen,Urine Negative; Cannabinoid Screen,Urine Negative; Methadone Screen,Urine Negative; Opiate Screen,Urine Negative
[2022-02-10 03:42] LABS: Bacteria,Urine 1+ /HPF (Negative); Bilirubin,Urine NEG (Negative); Blood,Urine SM (Negative); Color,Urine Yellow (Yellow); Mucus,Urine 2+ /HPF; Protein,Urine <15 mg/dL mg/dL (Negative)
[2022-02-10 03:43] LABS: Cocaine Screen,Urine PRESUMPTIVE POSITIVE
--- NOTE | 2022-02-10 08:20 | Emergency Department Report ---
Blank Doc - Documentation Documentation: Patient has no complaints this morning. He is resting comfortably. He still endorses suicidal ideation because he is homeless. Labs have been reviewed. Coronavirus test has been added on in case placement is necessary. UA has been noted. Culture is pending. He has no symptoms of urinary tract infection. There is no indication for empiric treatment at this time. We will continue to await psychiatric evaluation and disposition.
--- NOTE | 2022-02-10 09:54 | Consultation ---
History of Present Illness - Reason for Consult Consult date: 02/10/22 Reason for consult: SI, drug use - History of Present Psychiatric Illness The patient was seen today. He is calm, cooperative and polite. The patient appears down. He is crying. He says "I'm tired of living like this. I need help." He endorses SI without a plan. He says he uses "crack, and been using about 30 years." He says he is homeless. The patient says he doesn't have the support of his family due to his drug use. He denies hallucinations. He says "I'm just tired. I don't want to live anymore." PAST PSYCHIATRIC HISTORY Diagnoses: Denies Suicide attempts or Self-harm behavior: denies Prior psychiatric hospitalizations: Denies Substance Abuse history: Crack cocaine Previous psychiatric medications tried: Denies Outpatient treatment: Denies PAST MEDICAL HISTORY: None report Family Psychiatric History: None reported or documented SOCIAL HISTORY Marital Status: Living Arrangements: Homeless Employment Status: Disabled Access to guns/weapons: Denies Education: History of Abuse: none reported Legal History: none reported REVIEW OF SYSTEMS Constitutional: Negative for weight loss ENT: Negative for stridor Respiratory: Negative for cough or hemoptysis All other systems reviewed and are negative MENTAL STATUS EXAMINATION General Appearance and Behavior: Age appropriate, good hygiene, wearing appropriate clothes, fair eye contact, cooperative, polite Cooperation: Participating/engaged, but Guarded Psychomotor Behavior: Psychomotor normal Mood: depressed Affect and affective range: congruent with stated mood Thought Process: goal directed Thought Content: homelessness, SI Speech: normal tone and pace Suicidal Ideation: Yes Homicidal Ideation: Denies Hallucinations: Denies Impulse Control: limited Insight and Judgment: Limited insight and judgment Memory: Limited Attention: Attentive Orientation: Alert, oriented Assessment and Plan Major Depressive Disorder Cocaine Dependence Treatment Plan 1013 Lexapro 5mg po daily Trazodone 50mg po qhs Medical: per primary Disposition: Recommend acute psychiatric inpatient treatment Will follow. Thanks Case staffed with Dr. Jeong Medications and Allergies Allergies Allergy/AdvReac Type Severity Reaction Status Date / Time No Known Allergies Allergy Verified 02/09/22 16:46 Home Medications Medication Instructions Recorded Confirmed Last Taken Type Bictegrav/Emtricit/Tenofov [place] 1 tab PO DAILY 02/09/22 02/09/22 Unknown History [Biktarvy 50-200-25 mg (Nf)] Levothyroxine [Synthroid] 100 mcg PO QAM 02/09/22 02/09/22 Unknown History Tamsulosin [Flomax] 0.4 mg PO QHS 02/09/22 02/09/22 Unknown History Mental Status Exam - Vital signs Last Vital Signs Temp 98 F 02/10/22 06:00 Pulse 72 02/10/22 06:00 Resp 18 02/10/22 06:00 BP 117/63 02/10/22 06:00 Pulse Ox 100 02/10/22 06:00 Results Result Diagrams: 02/09/22 17:35 02/09/22 17:35 Abnormal lab results 02/09/22 02/09/22 02/09/22 Range/Units 17:35 17:35 17:35 RDW 16.5 H (13.2-15.2) % [place] % (Auto) 8.1 H (0.0-7.3) % Urine WBC (Auto) (0.0-6.0) /HPF Salicylates < 0.3 L (2.8-20.0) mg/dL Acetaminophen 5.0 L (10.0-30.0) ug/mL 02/10/22 Range/Units Unknown RDW (13.2-15.2) % [place] % (Auto) (0.0-7.3) % Urine WBC (Auto) 20.0 H (0.0-6.0) /HPF Salicylates (2.8-20.0) mg/dL Acetaminophen (10.0-30.0) ug/mL All other labs normal.
[2022-02-10] MEDS ORDERED: ESCITALOPRAM 10 MG TAB PO SCH (10:00)
[2022-02-10 10:08] VITALS: BP 119/62
[2022-02-10] MEDS ORDERED: traZODone 50 MG TAB PO SCH (22:00)
== END 2022-02-10 19:55 ==
LOC: ED 16:39
DX: R45.851 Suicidal ideations (principal); Z20.822 Contact with and (suspected) exposure to COVID-19
CPT/HCPCS: 36415; 80048; 80307; 80320; 81001; 85025; 87086; 99284; G0480; U0003